=== PATIENT | male | born 1970 | race Hispanic/Latino ===

== ENCOUNTER → 2017-11-11 | Outpatient (REF) | payer OTHER ==
[~2017-11-11] MED LIST: ADULT ASPIRIN L81 MG PO; AMOXICILLIN/CL875 MG PO; ASPIRIN81 M1 OR; AUGMENTIN500TAB PO; AUGMENTIN875TAB PO; CLINDAMYCIN300 M1 PO; COZAAR50 MG OR; HUMALOG 751000 UNITS SC; HUMALOG KW75 MG/25 K SC; INVOKANA100 MG PO; LISINOP/HCTZ1 TAB PO; LISINOPRIL10 MG PO; LORTAB 10-325 M1 TAB PO; LORTAB 5/3255 MG PO; LORTAB PO; LORTAB5 PO; METFORMIN1000 MG PO; PLAVIX75 MG PO; PRAVASTATIN SOD10 MG PO; SYMLIN0.6 MG/ML SC; TET/DIP TOX1 ML IM; ZOFRAN ODT4 MG OR
[2017-11-11 08:42] LABS: ALBUMIN 3.2 g/dL (3.2-5.0); CREATININE 1.6 mg/dL (0.7-1.3); POTASSIUM 4.7 mmol/l (3.5-5.1)
== END | disposition home or self-care (01) | DRG 684 ==
LOC: LAB 07:12
PROVIDERS: ATTEND Internal Medicine
DX: N18.3 Chronic kidney disease, stage 3 (moderate) (principal); E11.22 Type 2 diabetes mellitus with diabetic chronic kidney disease

== ENCOUNTER → 2018-03-24 | Outpatient (REF) | payer OTHER ==
[~2018-03-24] MED LIST changes: +ALLOPURINOL100 MG PO; +ATORVASTATIN CA80 MG PO; +BASAGLAR K100 UNIT/M SC; +CLOPIDOGREL75 MG PO; +FISH OIL1000 MG PO; +HUMALOG KW100 UNIT/M SC; +HUMALOG100 UNIT/M SC; +ISOSORB MONO30 MG PO; +MEDDOSEPAK PO; +METO50TA52 PO; +PROAIR HFA IN; +ROBITUSSIN AC10 ML PO; +VITAMIN D1000 UNIT PO
[2018-03-24 07:45] LABS: URINE BILIRUBIN - DIPSTICK NEGATIVE (NEGATIVE); URINE BLOOD DIPSTICK SMALL (NEGATIVE); URINE COLOR YELLOW; URINE GLUCOSE - DIPSTICK 100 mg/dL (NEGATIVE); URINE KETONE NEGATIVE (NEGATIVE); URINE LEUK ESTERASE NEGATIVE (NEGATIVE); URINE NITRITE - DIPSTICK NEGATIVE (Negative); URINE PROTEIN - DIPSTICK 100 mg/dL (NEG-TRACE); URINE SPECIFIC GRAVITY 1.025; URINE UROBILINOGEN - DIPSTICK 0.2 E.U./dL (0.2)
[2018-03-24 08:12] LABS: IMMATURE GRANULOCYTES 0.4 % (0.0-5.0); MEAN CORPUSCULAR HGB 30.5 pG CALC (26.0-32.0); MEAN CORPUSCULAR HGB CONC 33.9 g/L CALC (32.0-36.0); NEUT# 4.83 thou/uL (1.82-7.42); RED BLOOD COUNT 4.2 mill/uL (4.70-6.10); RED CELL DISTRI WIDTH 12.3 % (11.5-15.5)
[2018-03-24 08:13] LABS: HEMATOCRIT 37.8 % (39.0-50.0); HEMOGLOBIN 12.8 g/dl (14.0-18.0)
[2018-03-24 08:21] LABS: URINE WBC 0-2 WBC/hpf (0-5)
[2018-03-24 08:23] LABS: URINE HYALINE CAST FEW lpf (NONE-RARE)
[2018-03-24 08:30] LABS: ALBUMIN 3.4 g/dL (3.2-5.0); BILIRUBIN, TOTAL 0.8 mg/dL (0.0-1.4); CHOLESTEROL HDL RATIO 4.2 (<4.4 (CALC)); CREATININE 2.3 mg/dL (0.7-1.3); MAGNESIUM 2.1 mg/dL (1.6-2.3); TOTAL PROTEIN 6.3 g/dL (6.3-8.2)
[2018-03-24 08:31] LABS: POTASSIUM 4.1 mmol/l (3.5-5.1)
[2018-03-24 09:12] LABS: TSH, 3RD GENERATION 2.22 uIU/mL (0.47 - 4.68)
== END | disposition home or self-care (01) | DRG 392 ==
LOC: LAB 06:42
PROVIDERS: ATTEND Internal Medicine Cardiovascular Disease
DX: R10.9 Unspecified abdominal pain (principal); R94.5 Abnormal results of liver function studies; R73.09 Other abnormal glucose; R82.90 Unspecified abnormal findings in urine; D64.9 Anemia, unspecified; E53.8 Deficiency of other specified B group vitamins; E78.5 Hyperlipidemia, unspecified; E55.9 Vitamin D deficiency, unspecified; I10 Essential (primary) hypertension; E29.1 Testicular hypofunction; M10.9 Gout, unspecified; E03.9 Hypothyroidism, unspecified; E83.30 Disorder of phosphorus metabolism, unspecified; N40.0 Benign prostatic hyperplasia without lower urinary tract symptoms; E83.40 Disorders of magnesium metabolism, unspecified

== ENCOUNTER 2018-03-29 23:25 | Emergency (ER) | payer OTHER ==
[~2018-03-29] VITALS: Ht 180.3 cm; Wt 127.4 kg
[~2018-03-29 23:25] MED LIST changes: -ALLOPURINOL100 MG PO; -ATORVASTATIN CA80 MG PO; -BASAGLAR K100 UNIT/M SC; -CLOPIDOGREL75 MG PO; -FISH OIL1000 MG PO; -HUMALOG KW100 UNIT/M SC; -HUMALOG100 UNIT/M SC; -ISOSORB MONO30 MG PO; -MEDDOSEPAK PO; -METO50TA52 PO; -PROAIR HFA IN; -ROBITUSSIN AC10 ML PO; -VITAMIN D1000 UNIT PO
[2018-03-30 00:56] LABS: HEMATOCRIT 32.4 % (39.0-50.0); HEMOGLOBIN 11.1 g/dl (14.0-18.0); IMMATURE GRANULOCYTES 0.5 % (0.0-5.0); MEAN CELL VOLUME 91.3 fL CALC (80.0-100.0); MEAN CORPUSCULAR HGB 31.3 pG CALC (26.0-32.0); MEAN CORPUSCULAR HGB CONC 34.3 g/L CALC (32.0-36.0); NEUT# 7.92 thou/uL (1.82-7.42); RED BLOOD COUNT 3.55 mill/uL (4.70-6.10); RED CELL DISTRI WIDTH 12.3 % (11.5-15.5)
[2018-03-30 01:15] LABS: BILIRUBIN, TOTAL 1.2 mg/dL (0.0-1.4); CREATININE 2.9 mg/dL (0.7-1.3); POTASSIUM 3.8 mmol/l (3.5-5.1); TOTAL PROTEIN 5.4 g/dL (6.3-8.2)
[2018-03-30 01:16] LABS: ALBUMIN 2.6 g/dL (3.2-5.0)
[2018-03-30] MEDS ORDERED: MEDDOSEPAK PO (01:39)
[2018-03-30] MEDS ORDERED: ROBITUSSIN AC10 ML PO (01:39)
[2018-03-30] MEDS ORDERED: PROAIR HFA IN (01:39)
[2018-03-30] MEDS ORDERED: HUMALOG100 UNIT/M SC (02:40)
[2018-03-30] MEDS ORDERED: METO50TA52 PO (02:40)
[2018-03-30] MEDS ORDERED: BASAGLAR K100 UNIT/M SC (02:41)
[2018-03-30] MEDS ORDERED: VITAMIN D1000 UNIT PO (02:42)
[2018-03-30 03:00] VITALS: BP 142/79
[2018-04-17] MEDS ORDERED: CLOPIDOGREL75 MG PO (15:48)
[2018-04-17] MEDS ORDERED: ATORVASTATIN CA80 MG PO (15:49)
[2018-04-17] MEDS ORDERED: ISOSORB MONO30 MG PO (15:49)
[2018-04-17] MEDS ORDERED: HUMALOG KW100 UNIT/M SC (15:50)
[2018-04-17] MEDS ORDERED: FISH OIL1000 MG PO (15:51)
[2018-04-17] MEDS ORDERED: ALLOPURINOL100 MG PO (15:52)
== END 2018-03-30 03:10 | disposition short-term general hospital (02) | DRG 281 ==
LOC: ED 23:25
PROVIDERS: Emergency Medicine
DX: I21.9 Acute myocardial infarction, unspecified (principal); N17.9 Acute kidney failure, unspecified; J06.9 Acute upper respiratory infection, unspecified; Q60.0 Renal agenesis, unilateral; E11.9 Type 2 diabetes mellitus without complications; I25.10 Atherosclerotic heart disease of native coronary artery without angina pectoris; Z95.5 Presence of coronary angioplasty implant and graft
CPT/HCPCS: J2060

== ENCOUNTER → 2018-04-18 | Outpatient (REF) | payer OTHER ==
[~2018-04-18] MED LIST changes: +ALLOPURINOL100 MG PO; +ATORVASTATIN CA80 MG PO; +BASAGLAR K100 UNIT/M SC; +CLOPIDOGREL75 MG PO; +FISH OIL1000 MG PO; +HUMALOG KW100 UNIT/M SC; +HUMALOG100 UNIT/M SC; +ISOSORB MONO30 MG PO; +MEDDOSEPAK PO; +METO50TA52 PO; +PROAIR HFA IN; +ROBITUSSIN AC10 ML PO; +VITAMIN D1000 UNIT PO
[2018-04-18 08:27] LABS: HEMATOCRIT 34.3 % (39.0-50.0); HEMOGLOBIN 11.6 g/dl (14.0-18.0)
[2018-04-18 08:58] LABS: CHOLESTEROL HDL RATIO 3.1 (<4.4 (CALC))
[2018-04-18 08:59] LABS: CREATININE 2.5 mg/dL (0.7-1.3)
[2018-04-18 09:03] LABS: ALBUMIN 3.2 g/dL (3.2-5.0); POTASSIUM 4.7 mmol/l (3.5-5.1)
== END | disposition home or self-care (01) | DRG 639 ==
LOC: LAB 06:51
PROVIDERS: Internal Medicine Endocrinology, Diabetes & Metabolism; ATTEND Internal Medicine
DX: E10.65 Type 1 diabetes mellitus with hyperglycemia (principal); E78.2 Mixed hyperlipidemia

== ENCOUNTER 2018-10-10 10:32 | Emergency (ER) | payer OTHER ==
[~2018-10-10] VITALS: Ht 180.3 cm; Wt 118.1 kg
[2018-10-10 12:04] LABS: HEMATOCRIT 31.6 % (39.0-50.0); HEMOGLOBIN 10.9 g/dl (14.0-18.0); IMMATURE GRANULOCYTES 0.5 % (0.0-5.0); MEAN CELL VOLUME 90.3 fL CALC (80.0-100.0); MEAN CORPUSCULAR HGB 31.1 pG CALC (26.0-32.0); MEAN CORPUSCULAR HGB CONC 34.5 g/L CALC (32.0-36.0); NEUT# 5.57 thou/uL (1.82-7.42); RED BLOOD COUNT 3.5 mill/uL (4.70-6.10); RED CELL DISTRI WIDTH 12.2 % (11.5-15.5)
[2018-10-10 12:18] LABS: URINE BILIRUBIN - DIPSTICK NEGATIVE (NEGATIVE); URINE BLOOD DIPSTICK SMALL (NEGATIVE); URINE COLOR YELLOW; URINE GLUCOSE - DIPSTICK 500 mg/dL (NEGATIVE); URINE KETONE NEGATIVE (NEGATIVE); URINE LEUK ESTERASE NEGATIVE (NEGATIVE); URINE NITRITE - DIPSTICK NEGATIVE (Negative); URINE PROTEIN - DIPSTICK 100 mg/dL (NEG-TRACE); URINE UROBILINOGEN - DIPSTICK 0.2 E.U./dL (0.2)
[2018-10-10 12:27] LABS: BARBITURATES NEGATIVE (NEGATIVE); COCAINE NEGATIVE (NEGATIVE); METHADONE NEGATIVE (NEGATIVE); OXCYCODONE NEGATIVE (NEGATIVE); TETRAHYDROCANNABIONOL NEGATIVE (NEGATIVE); TRICYLIC ANTIDEPRESSANTS NEGATIVE (NEGATIVE)
[2018-10-10 12:29] LABS: ALBUMIN 2.9 g/dL (3.2-5.0); BILIRUBIN, TOTAL 0.9 mg/dL (0.0-1.4); CREATININE 2.8 mg/dL (0.7-1.3); TOTAL PROTEIN 6.1 g/dL (6.3-8.2)
[2018-10-10 12:31] LABS: URINE MUCUS FEW hpf (NONE-FEW); URINE RBC 0-2 RBC/hpf (0-5)
[2018-10-10 12:38] LABS: POTASSIUM 5.2 mmol/l (3.5-5.1)
[2018-10-10 13:10] VITALS: BP 134/92
== END 2018-10-10 13:19 | disposition home or self-care (01) | DRG 605 ==
LOC: ED 10:32
DX: S40.011A Contusion of right shoulder, initial encounter (principal); S50.01XA Contusion of right elbow, initial encounter; E11.65 Type 2 diabetes mellitus with hyperglycemia; E87.5 Hyperkalemia; I25.10 Atherosclerotic heart disease of native coronary artery without angina pectoris; I25.2 Old myocardial infarction; W01.0XXA Fall on same level from slipping, tripping and stumbling without subsequent striking against object, initial encounter; Z95.5 Presence of coronary angioplasty implant and graft; Z79.4 Long term (current) use of insulin

== ENCOUNTER 2018-12-03 15:45 | Emergency (ER) | payer OTHER ==
[~2018-12-03] VITALS: Ht 180.3 cm; Wt 118.0 kg
[2018-12-03 16:27] LABS: HEMATOCRIT 30.6 % (39.0-50.0); HEMOGLOBIN 10.4 g/dl (14.0-18.0); IMMATURE GRANULOCYTES 0.5 % (0.0-5.0); MEAN CELL VOLUME 91.3 fL CALC (80.0-100.0); NEUT# 7.75 thou/uL (1.82-7.42); RED BLOOD COUNT 3.35 mill/uL (4.70-6.10); RED CELL DISTRI WIDTH 12.2 % (11.5-15.5)
[2018-12-03 16:44] LABS: ALBUMIN 2.9 g/dL (3.2-5.0); CREATININE 3.3 mg/dL (0.7-1.3); POTASSIUM 4.8 mmol/l (3.5-5.1); TOTAL PROTEIN 5.8 g/dL (6.3-8.2)
[2018-12-03] MEDS ORDERED: MAGNESIUM500 M1 PO (17:27)
[2018-12-03] MEDS ORDERED: LISINOPRIL20 MG PO (17:27)
[2018-12-03] MEDS ORDERED: FLUOXETINE20 MG PO (17:29)
[2018-12-03] MEDS ORDERED: CLOPIDOGREL75 MG PO (17:29)
[2018-12-03] MEDS ORDERED: DICLOFENAC SODI75 MG PO (17:30)
[2018-12-03] MEDS ORDERED: [UNRECOGNIZED DRUG - OTHER] PO (17:31)
[2018-12-03] MEDS ORDERED: LEVAQUIN500 MG PO (18:05)
[2018-12-03] MEDS ORDERED: MEDDOSEPAK PO (18:05)
[2018-12-03] MEDS ORDERED: HYCODAN1 ML PO (18:05)
[2018-12-03 18:37] VITALS: BP 121/65
== END 2018-12-03 18:37 | disposition home or self-care (01) | DRG 203 ==
LOC: ED 15:45
DX: J45.901 Unspecified asthma with (acute) exacerbation (principal); E11.9 Type 2 diabetes mellitus without complications; I25.10 Atherosclerotic heart disease of native coronary artery without angina pectoris; I25.2 Old myocardial infarction; Z95.5 Presence of coronary angioplasty implant and graft; Z79.4 Long term (current) use of insulin

== ENCOUNTER 2019-02-26 | Emergency (ER) | payer OTHER ==
[~2019-02-26] MED LIST changes: +DICLOFENAC SODI75 MG PO; +FLUOXETINE20 MG PO; +HYCODAN1 ML PO; +LEVAQUIN500 MG PO; +LISINOPRIL20 MG PO; +MAGNESIUM500 M1 PO; +[UNRECOGNIZED DRUG - OTHER] PO
[2019-02-26] MEDS ORDERED: CEPHALEXIN500 M1 PO ×2 (16:27→17:09)
== END 2019-02-26 16:40 | disposition home or self-care (01) | DRG 605 ==
PROC: 0HQFXZZ Repair Right Hand Skin, External Approach (ICD-10-PCS; principal; 2019-02-26)
DX: S61.212A Laceration without foreign body of right middle finger without damage to nail, initial encounter (principal); S61.214A Laceration without foreign body of right ring finger without damage to nail, initial encounter; N18.4 Chronic kidney disease, stage 4 (severe); E11.22 Type 2 diabetes mellitus with diabetic chronic kidney disease; I12.9 Hypertensive chronic kidney disease with stage 1 through stage 4 chronic kidney disease, or unspecified chronic kidney disease; I25.10 Atherosclerotic heart disease of native coronary artery without angina pectoris; I25.2 Old myocardial infarction; W23.0XXA Caught, crushed, jammed, or pinched between moving objects, initial encounter; Y92.009 Unspecified place in unspecified non-institutional (private) residence as the place of occurrence of the external cause; Z79.4 Long term (current) use of insulin

== ENCOUNTER 2019-03-08 | Emergency (ER) | payer OTHER ==
[~2019-03-08] MED LIST changes: +CEPHALEXIN500 M1 PO
== END 2019-03-08 20:55 | disposition home or self-care (01) | DRG 950 ==
DX: S61.212D Laceration without foreign body of right middle finger without damage to nail, subsequent encounter (principal); S61.214D Laceration without foreign body of right ring finger without damage to nail, subsequent encounter; X58.XXXD Exposure to other specified factors, subsequent encounter

== ENCOUNTER 2019-08-16 08:54 | Emergency (ER) | payer OTHER ==
[~2019-08-16] VITALS: Ht 180.3 cm; Wt 86.0 kg
[2019-08-16 09:24] LABS: HEMATOCRIT 33.5 % (39.0-50.0); HEMOGLOBIN 11.4 g/dl (14.0-18.0); IMMATURE GRANULOCYTES 0.6 % (0.0-5.0); MEAN CELL VOLUME 89.8 fL CALC (80.0-100.0); MEAN CORPUSCULAR HGB 30.6 pG CALC (26.0-32.0); NEUT# 6.61 thou/uL (1.82-7.42); RED BLOOD COUNT 3.73 mill/uL (4.70-6.10); RED CELL DISTRI WIDTH 12.2 % (11.5-15.5)
[2019-08-16] MEDS ORDERED: LANTUS SOL100 UNIT/M SC (09:24)
[2019-08-16] MEDS ORDERED: HUMALOG KW100 UNIT/M SC (09:24)
[2019-08-16] MEDS ORDERED: RANOLAZINE ER500 MG PO (09:25)
[2019-08-16] MEDS ORDERED: METOPROLOL SUCC50 MG PO (09:25)
[2019-08-16] MEDS ORDERED: MAGNESIUM400 MG PO (09:26)
[2019-08-16] MEDS ORDERED: [UNRECOGNIZED DRUG - CODE] PO (09:27)
[2019-08-16] MEDS ORDERED: ISOSORB MONO30 MG PO (09:28)
[2019-08-16] MEDS ORDERED: ASPIRIN81 MG PO (09:28)
[2019-08-16] MEDS ORDERED: FLUOXETINE HCL20 MG PO (09:29)
[2019-08-16] MEDS ORDERED: CLOPIDOGREL75 MG PO (09:29)
[2019-08-16] MEDS ORDERED: ALLOPURINOL100 MG PO (09:29)
[2019-08-16] MEDS ORDERED: DEMADEX20 MG PO (09:29)
[2019-08-16] MEDS ORDERED: ATORVASTATIN CA40 MG PO (09:30)
[2019-08-16] MEDS ORDERED: LISINOPRIL10 M1 PO (09:30)
[2019-08-16 10:00] LABS: ANION GAP 9 (6-22 (CALC)); BUN 23 mg/dL (9-20); BUN/CREATININE RATIO 8 (12-20 (CALC)); CARBON DIOXIDE 24 mmol/l (22-30); CHLORIDE 103 mmol/l (95-108); GFR 22 ML/MIN (>=60 (CALC)); GFR FOR AFR.AMER. 27 ML/MIN (>=60 (CALC)); POTASSIUM 3.9 mmol/l (3.5-5.1); SODIUM 132 mmol/l (137-146)
[2019-08-16 10:24] VITALS: BP 135/70
== END 2019-08-16 10:13 | disposition short-term general hospital (02) | DRG 303 ==
LOC: ED 08:54
PROVIDERS: Family Medicine
DX: I25.110 Atherosclerotic heart disease of native coronary artery with unstable angina pectoris (principal); N18.4 Chronic kidney disease, stage 4 (severe); I12.9 Hypertensive chronic kidney disease with stage 1 through stage 4 chronic kidney disease, or unspecified chronic kidney disease; E11.22 Type 2 diabetes mellitus with diabetic chronic kidney disease; I25.2 Old myocardial infarction; Z79.4 Long term (current) use of insulin; Z95.5 Presence of coronary angioplasty implant and graft; Z79.02 Long term (current) use of antithrombotics/antiplatelets; Z79.82 Long term (current) use of aspirin
CPT/HCPCS: J1644

== ENCOUNTER 2019-09-10 18:34 | Emergency (ER) | payer OTHER ==
[~2019-09-10] VITALS: Ht 180.3 cm; Wt 118.0 kg
[~2019-09-10 18:34] MED LIST changes: +ASPIRIN81 MG PO; +ATORVASTATIN CA40 MG PO; +DEMADEX20 MG PO; +FLUOXETINE HCL20 MG PO; +LANTUS SOL100 UNIT/M SC; +LISINOPRIL10 M1 PO; +MAGNESIUM400 MG PO; +METOPROLOL SUCC50 MG PO; +RANOLAZINE ER500 MG PO; +[UNRECOGNIZED DRUG - CODE] PO
[2019-09-10 19:32] VITALS: BP 176/75
== END 2019-09-10 19:32 | disposition home or self-care (01) | DRG 605 ==
LOC: ED 18:34
DX: S60.221A Contusion of right hand, initial encounter (principal); N18.4 Chronic kidney disease, stage 4 (severe); Q60.0 Renal agenesis, unilateral; I12.9 Hypertensive chronic kidney disease with stage 1 through stage 4 chronic kidney disease, or unspecified chronic kidney disease; E11.22 Type 2 diabetes mellitus with diabetic chronic kidney disease; I25.10 Atherosclerotic heart disease of native coronary artery without angina pectoris; I25.2 Old myocardial infarction; W01.0XXA Fall on same level from slipping, tripping and stumbling without subsequent striking against object, initial encounter; Y93.K9 Activity, other involving animal care; Y92.009 Unspecified place in unspecified non-institutional (private) residence as the place of occurrence of the external cause; Z95.5 Presence of coronary angioplasty implant and graft; Z79.4 Long term (current) use of insulin

== ENCOUNTER 2019-12-09 20:56 | Emergency (ER) | payer OTHER ==
[~2019-12-09] VITALS: Ht 177.8 cm; Wt 118.0 kg
[2019-12-09 21:13] VITALS: BP 169/84
== END 2019-12-09 21:26 | disposition left against medical advice (07) | DRG 314 ==
LOC: ED 20:56
DX: T82.7XXA Infection and inflammatory reaction due to other cardiac and vascular devices, implants and grafts, initial encounter (principal); N18.6 End stage renal disease; I12.0 Hypertensive chronic kidney disease with stage 5 chronic kidney disease or end stage renal disease; E11.22 Type 2 diabetes mellitus with diabetic chronic kidney disease; I25.10 Atherosclerotic heart disease of native coronary artery without angina pectoris; I25.2 Old myocardial infarction; Y83.2 Surgical operation with anastomosis, bypass or graft as the cause of abnormal reaction of the patient, or of later complication, without mention of misadventure at the time of the procedure; Z99.2 Dependence on renal dialysis; Z79.4 Long term (current) use of insulin; Z95.5 Presence of coronary angioplasty implant and graft; Z91.19 Patient's noncompliance with other medical treatment and regimen

== ENCOUNTER 2020-02-20 11:43 | Emergency (ER) | payer OTHER ==
[~2020-02-20] VITALS: Ht 177.8 cm; Wt 123.0 kg
[2020-02-20] MEDS ORDERED: AMOX/K CLAV875 M1 PO (12:27)
[2020-02-20 12:56] VITALS: BP 128/69
== END 2020-02-20 12:56 | disposition home or self-care (01) | DRG 605 ==
LOC: ED 11:43
DX: S50.812A Abrasion of left forearm, initial encounter (principal); N18.4 Chronic kidney disease, stage 4 (severe); S50.12XA Contusion of left forearm, initial encounter; I12.9 Hypertensive chronic kidney disease with stage 1 through stage 4 chronic kidney disease, or unspecified chronic kidney disease; E11.22 Type 2 diabetes mellitus with diabetic chronic kidney disease; I25.10 Atherosclerotic heart disease of native coronary artery without angina pectoris; I25.2 Old myocardial infarction; F32.9 Major depressive disorder, single episode, unspecified; W54.8XXA Other contact with dog, initial encounter; Y93.89 Activity, other specified; Y99.0 Civilian activity done for income or pay; Z99.2 Dependence on renal dialysis; Z95.5 Presence of coronary angioplasty implant and graft; Z79.4 Long term (current) use of insulin

== ENCOUNTER 2020-10-23 11:09 | Emergency (ER) | payer MEDICARE ==
[~2020-10-23] VITALS: Ht 177.8 cm; Wt 100.0 kg
[~2020-10-23 11:09] MED LIST changes: +AMOX/K CLAV875 M1 PO
[2020-10-23 11:15] VITALS: BP 130/76
[2020-10-23 12:22] LABS: ALBUMIN 3.8 g/dL (3.2-5.0); ALKALINE PHOSPHATASE 98 u/l (38-126); ANION GAP 12 (6-22 (CALC)); BILIRUBIN, TOTAL 1.1 mg/dL (0.0-1.4); BUN 19 mg/dL (9-20); BUN/CREATININE RATIO 4 (12-20 (CALC)); CARBON DIOXIDE 29 mmol/l (22-30); CHLORIDE 98 mmol/l (95-108); CREATININE 4.4 mg/dL (0.7-1.3); GFR 14 ML/MIN (>=60 (CALC)); GFR FOR AFR.AMER. 17 ML/MIN (>=60 (CALC)); POTASSIUM 4.6 mmol/l (3.5-5.1); SGOT/AST 29 u/l (17-59); SODIUM 134 mmol/l (137-146)
[2020-10-23 12:32] LABS: HEMATOCRIT 35.4 % (39.0-50.0); HEMOGLOBIN 11.8 g/dl (14.0-18.0); IMMATURE GRANULOCYTES 0.5 % (0.0-5.0); MEAN CELL VOLUME 94.9 fL CALC (80.0-100.0); MEAN CORPUSCULAR HGB 31.6 pG CALC (26.0-32.0); MEAN CORPUSCULAR HGB CONC 33.3 g/dL CAL (32.0-36.0); NEUT# 5.79 thou/uL (1.82-7.42); RED BLOOD COUNT 3.73 mill/uL (4.70-6.10); RED CELL DISTRI WIDTH 12.5 % (11.5-15.5)
[2020-10-23] MEDS ORDERED: MEDDOSEPAK PO (13:57)
[2020-10-23] MEDS ORDERED: VALTREX1 GM PO (13:57)
[2020-10-23] MEDS ORDERED: PERCOCET 5/325M1 TAB PO (13:57)
== END 2020-10-23 14:26 | disposition home or self-care (01) ==
LOC: ED 11:09
PROVIDERS: Family Medicine
DX: B02.9 Zoster without complications (principal); I12.9 Hypertensive chronic kidney disease with stage 1 through stage 4 chronic kidney disease, or unspecified chronic kidney disease; E11.22 Type 2 diabetes mellitus with diabetic chronic kidney disease; N18.4 Chronic kidney disease, stage 4 (severe); I25.10 Atherosclerotic heart disease of native coronary artery without angina pectoris; I25.2 Old myocardial infarction; Q60.0 Renal agenesis, unilateral; F32.9 Major depressive disorder, single episode, unspecified; Z95.5 Presence of coronary angioplasty implant and graft; Z79.4 Long term (current) use of insulin

== ENCOUNTER 2021-06-19 13:03 | Emergency (ER) | payer MEDICARE ==
[~2021-06-19] VITALS: Ht 177.8 cm; Wt 110.0 kg
[2021-06-19] VITALS (19 sets, daily range): BP systolic 87–123; BP diastolic 49–72
[~2021-06-19 13:03] MED LIST changes: +PERCOCET 5/325M1 TAB PO; +VALTREX1 GM PO
[2021-06-19 14:30] LABS: HEMATOCRIT 32.6 % (39.0-50.0); HEMOGLOBIN 10.8 g/dl (14.0-18.0); IMMATURE GRANULOCYTES 0.5 % (0.0-5.0); MEAN CORPUSCULAR HGB 33.6 pG CALC (26.0-32.0); MEAN CORPUSCULAR HGB CONC 33.1 g/dL CAL (32.0-36.0); NEUT# 6.15 thou/uL (1.82-7.42); RED BLOOD COUNT 3.21 mill/uL (4.70-6.10); RED CELL DISTRI WIDTH 12.6 % (11.5-15.5)
[2021-06-19 14:31] LABS: MEAN CELL VOLUME 101.6 fL CALC (80.0-100.0)
[2021-06-19 14:39] LABS: INTERNATIONAL NORMALIZED RATIO 0.9 RATIO (0.7-1.3); PROTHROMBIN TIME 9.8 SECONDS (9.0-12.5)
[2021-06-19 14:42] LABS: ALBUMIN 4.1 g/dL (3.2-5.0); ALKALINE PHOSPHATASE 90 u/l (38-126); BUN 31 mg/dL (9-20); CARBON DIOXIDE 27 mmol/l (22-30); CHLORIDE 101 mmol/l (95-108); ETHYL ALCOHOL 0 mg/dl (0-30); LIPASE 60 u/l (23-300); SGOT/AST 39 u/l (17-59); SODIUM 138 mmol/l (137-146); TOTAL PROTEIN 7.5 g/dL (6.3-8.2)
[2021-06-19 14:48] LABS: ANION GAP 15 (6-22 (CALC)); BILIRUBIN, TOTAL 0.6 mg/dL (0.0-1.4); BUN/CREATININE RATIO 4 (12-20 (CALC)); CREATININE 7.4 mg/dL (0.7-1.3); GFR 8 ML/MIN (>=60 (CALC)); GFR FOR AFR.AMER. 9 ML/MIN (>=60 (CALC)); POTASSIUM 5.4 mmol/l (3.5-5.1)
[2021-06-19 14:52] LABS: MYOGLOBIN 150 ng/mL (0 - 121)
[2021-06-24] MEDS ORDERED: METOPROL TAR25 M1 PO (08:47)
[2021-06-24] MEDS ORDERED: TOUJEO MAX300 UNIT/M (08:49)
== END 2021-06-19 17:18 | disposition home or self-care (01) ==
LOC: ED 13:03
PROVIDERS: Nurse Practitioner
DX: E11.649 Type 2 diabetes mellitus with hypoglycemia without coma (principal); I95.1 Orthostatic hypotension; E11.22 Type 2 diabetes mellitus with diabetic chronic kidney disease; I12.0 Hypertensive chronic kidney disease with stage 5 chronic kidney disease or end stage renal disease; N18.6 End stage renal disease; Z99.2 Dependence on renal dialysis; Z79.4 Long term (current) use of insulin; I25.10 Atherosclerotic heart disease of native coronary artery without angina pectoris; I25.2 Old myocardial infarction; F32.A Depression, unspecified; Z95.5 Presence of coronary angioplasty implant and graft

== ENCOUNTER → 2021-07-20 | Day surgery (SDC) | payer MEDICARE ==
[~2021-07-20] VITALS: Ht 177.8 cm; Wt 108.9 kg
[~2021-07-20] MED LIST changes: +METOPROL TAR25 M1 PO; +TOUJEO MAX300 UNIT/M SC
[2021-07-20 11:14] VITALS: BP 131/83
== END | disposition home or self-care (01) ==
LOC: ENDO 08:29
PROVIDERS: ATTEND Surgery
PROC: 0DBH8ZX Excision of Cecum, Via Natural or Artificial Opening Endoscopic, Diagnostic (ICD-10-PCS; principal; 2021-07-20)
DX: Z12.11 Encounter for screening for malignant neoplasm of colon (principal); D12.0 Benign neoplasm of cecum; I12.0 Hypertensive chronic kidney disease with stage 5 chronic kidney disease or end stage renal disease; E11.22 Type 2 diabetes mellitus with diabetic chronic kidney disease; N18.6 End stage renal disease; Z99.2 Dependence on renal dialysis; Z79.4 Long term (current) use of insulin; Z95.5 Presence of coronary angioplasty implant and graft

== ENCOUNTER 2022-08-19 09:55 | Emergency (ER) | payer MEDICARE ==
[~2022-08-19] VITALS: Ht 177.8 cm; Wt 107.0 kg
[2022-08-19] VITALS (12 sets, daily range): BP systolic 80–109; BP diastolic 47–64
[2022-08-19 10:43] LABS: BASO% 0.4 % (0-3); EOS% 0.7 % (0-8); HEMATOCRIT 29.5 % (39.0-50.0); HEMOGLOBIN 9.8 g/dl (14.0-18.0); IMMATURE GRANULOCYTES 0.5 % (0.0-5.0); LYMPH% 4.8 % (15-41); MEAN CELL VOLUME 96.7 fL CALC (80.0-100.0); MEAN CORPUSCULAR HGB 32.1 pG CALC (26.0-32.0); MEAN CORPUSCULAR HGB CONC 33.2 g/dL CAL (32.0-36.0); MONO% 7.4 % (2-13); NEUT# 11.16 thou/uL (1.82-7.42); NEUT% 86.2 % (42-76); RED BLOOD COUNT 3.05 mill/uL (4.70-6.10); RED CELL DISTRI WIDTH 12.5 % (11.5-15.5)
[2022-08-19 10:48] LABS: ALBUMIN 3.5 g/dL (3.2-5.0); POTASSIUM 4.9 mmol/l (3.5-5.1); TOTAL PROTEIN 6.6 g/dL (6.3-8.2)
[2022-08-19 10:52] LABS: CREATININE 7.5 mg/dL (0.7-1.3)
== END 2022-08-19 13:50 | disposition home or self-care (01) ==
LOC: ED 09:55
PROVIDERS: Family Medicine
DX: I95.3 Hypotension of hemodialysis (principal); M79.602 Pain in left arm; I12.0 Hypertensive chronic kidney disease with stage 5 chronic kidney disease or end stage renal disease; E11.22 Type 2 diabetes mellitus with diabetic chronic kidney disease; N18.6 End stage renal disease; Z99.2 Dependence on renal dialysis; I25.10 Atherosclerotic heart disease of native coronary artery without angina pectoris; Q60.0 Renal agenesis, unilateral; I25.2 Old myocardial infarction; F32.A Depression, unspecified; Z79.4 Long term (current) use of insulin